=== PATIENT | female | born 1965 | race Caucasian/White ===

== ENCOUNTER 2017-08-03 10:43 | Outpatient (CLI) | payer OTHER | END 2017-08-03 10:50 | disposition home or self-care (01) | LOC: LAB 10:43 | DX: I10 Essential (primary) hypertension (principal); E03.8 Other specified hypothyroidism; E11.9 Type 2 diabetes mellitus without complications; E78.2 Mixed hyperlipidemia ==

== ENCOUNTER 2017-08-09 09:22 | Outpatient (CLI) | payer OTHER | END 2017-08-09 09:30 | disposition home or self-care (01) | LOC: NUCLEAR 09:22 | DX: I87.2 Venous insufficiency (chronic) (peripheral) (principal) ==